=== PATIENT | female | born 2005 | race Caucasian/White ===

== ENCOUNTER 2024-12-25 12:12 | Emergency (ER) | payer SELFPAY ==
[~2024-12-25] VITALS: Ht 152.4 cm; Wt 72.6 kg
== END 2024-12-25 13:23 | disposition home or self-care (01) ==
LOC: ED 12:12
DX: Z32.02 Encounter for pregnancy test, result negative (principal); Z91.040 Latex allergy status

== ENCOUNTER 2025-02-25 11:09 | Emergency (ER) | payer SELFPAY ==
[~2025-02-25] VITALS: Ht 152.4 cm; Wt 84.1 kg
[2025-02-25] MEDS ORDERED: Acetaminophen/Hydrocodone 5 MG/325 MG TABLET PO ONE (11:30)
[2025-02-25 11:37] LABS: BILIRUBIN Negative (Negative); BLOOD Negative (Negative); CLARITY Clear (Clear); COLOR Yellow (Yellow); KETONE Negative (Negative); LEUKO ESTERASE Negative (Negative); NITRITE Negative (Negative); PH 7.0 (4.5-8.0); SPECIFIC GRAVITY <= 1.005 (1.001-1.030); UROBILINOGEN 0.2 E.U./dl (0.0-1.0)
[2025-02-25 11:51] LABS: WBC 0-2 wbc/hpf (0-5)
[2025-02-25 11:52] LABS: BACTERIA TRACE
[2025-02-25] MEDS ORDERED: IBU800 M1 PO (12:39)
[2025-02-25] MEDS ORDERED: MEDROL DOSEPAK4 MG PO (12:39)
[2025-02-25] MEDS ORDERED: ZANAFLEX4 MG PO (12:39)
== END 2025-02-25 12:45 | disposition home or self-care (01) ==
LOC: ED 11:09
PROVIDERS: Emergency Medicine
DX: S29.011A Strain of muscle and tendon of front wall of thorax, initial encounter (principal); M54.50 Low back pain, unspecified; Z91.040 Latex allergy status; X50.9XXA Other and unspecified overexertion or strenuous movements or postures, initial encounter; Y93.89 Activity, other specified; Y92.89 Other specified places as the place of occurrence of the external cause; Y99.8 Other external cause status

== ENCOUNTER 2025-03-08 09:00 | Emergency (ER) | payer OTHER ==
[~2025-03-08 09:00] MED LIST: IBU800 M1 PO; MEDROL DOSEPAK4 MG PO; ZANAFLEX4 MG PO
== END 2025-03-08 09:45 | disposition home or self-care (01) ==
LOC: ED 09:00
DX: R40.0 Somnolence (principal); T42.8X5A Adverse effect of antiparkinsonism drugs and other central muscle-tone depressants, initial encounter; Z91.040 Latex allergy status; Y92.89 Other specified places as the place of occurrence of the external cause